=== PATIENT | male | born 1965 | race Asian ===

== ENCOUNTER 2024-04-10 06:14 | Day surgery (SDC) | payer OTHER ==
[~2024-04-10] VITALS: Ht 160 cm; Wt 58.1 kg
[2024-04-10] MEDS ORDERED: fentaNYL CITRATE/PF 100 MCG/2 ML AMP ONE (06:58)
[2024-04-10] MEDS ORDERED: MIDAZOLAM HCL 5 MG/5 ML VIAL ONE ×2 (06:58→08:58)
[2024-04-10 16:54] VITALS: BP_SYST 103; PULSE 66; RESP 26; TEMP 97.9; O2SAT 100
== END 2024-04-10 09:42 | disposition home or self-care (01) ==
LOC: SGI 06:14 → SMU 06:15 → SGI 09:42
PROVIDERS: ATTEND Internal Medicine
DX: K58.9 Irritable bowel syndrome, unspecified (principal); K29.50 Unspecified chronic gastritis without bleeding; K31.89 Other diseases of stomach and duodenum; K21.9 Gastro-esophageal reflux disease without esophagitis; K31.4 Gastric diverticulum; K57.30 Diverticulosis of large intestine without perforation or abscess without bleeding; K31.A0 Gastric intestinal metaplasia, unspecified; K64.8 Other hemorrhoids; E78.5 Hyperlipidemia, unspecified; Z87.891 Personal history of nicotine dependence; Z88.2 Allergy status to sulfonamides; Z86.010 Personal history of colon polyps; Z80.0 Family history of malignant neoplasm of digestive organs; Z79.899 Other long term (current) drug therapy
CPT/HCPCS: 45378; 43239; 88305; 88312; 88313; 99152; 99153; G0378; J2250; J3010